=== PATIENT | female | born 1980 | race Two or more races ===

== ENCOUNTER 2020-10-19 13:30 | Emergency (ER) | payer OTHER ==
[~2020-10-19] VITALS: Ht 58.4 cm; Wt 83.0 kg
[~2020-10-19 13:30] MED LIST: TYLENOR
[2020-10-19] MEDS ORDERED: BACTRIM DS TAB1 EACH (13:46)
[2020-10-19] MEDS ORDERED: PROTONIX40 M1 (13:46)
[2020-10-19] MEDS ORDERED: BENTYL10 MG/1 ML (13:46)
[2020-10-19] MEDS ORDERED: NAPROXEN375 MG PO (23:44)
[2020-10-19] MEDS ORDERED: PEPCID AC20 MG PO (23:44)
== END 2020-10-20 00:04 | disposition home or self-care (01) ==
LOC: ER 13:30
DX: D25.9 Leiomyoma of uterus, unspecified (principal); R10.32 Left lower quadrant pain

== ENCOUNTER 2020-12-22 08:27 | Outpatient (CLI) | payer OTHER ==
[~2020-12-22 08:27] MED LIST changes: +BACTRIM DS TAB1 EACH; +BENTYL10 MG/1 ML; +NAPROXEN375 MG PO; +PEPCID AC20 MG PO; +PROTONIX40 M1
== END 2020-12-22 08:38 | disposition home or self-care (01) ==
LOC: MAMO-SONO 08:27
DX: D24.1 Benign neoplasm of right breast (principal); D24.2 Benign neoplasm of left breast; Z12.31 Encounter for screening mammogram for malignant neoplasm of breast; D25.0 Submucous leiomyoma of uterus; N64.4 Mastodynia; N94.89 Other specified conditions associated with female genital organs and menstrual cycle; N64.59 Other signs and symptoms in breast

== ENCOUNTER 2022-09-24 07:00 | Inpatient (IN) | payer OTHER ==
[~2022-09-24] VITALS: Ht 180.3 cm; Wt 91.6 kg
[2022-09-29] MEDS ORDERED: IBUPROFEN800 MG PO (10:39)
== END 2022-09-29 11:19 | disposition home or self-care (01) | DRG 741 ==
LOC: O/R 09-26 06:35 → SURG 09-26 07:00 → OB/GYN 09-26 22:38
PROVIDERS: ADMIT Obstetrics & Gynecology; ATTEND Obstetrics & Gynecology
PROC: 0UT70ZZ Resection of Bilateral Fallopian Tubes, Open Approach (ICD-10-PCS; 2022-09-26)
PROC: 0UT90ZZ Resection of Uterus, Open Approach (ICD-10-PCS; principal; 2022-09-26 09:15)
DX: D06.7 Carcinoma in situ of other parts of cervix (principal); N72 Inflammatory disease of cervix uteri; D25.1 Intramural leiomyoma of uterus; D25.2 Subserosal leiomyoma of uterus; Z20.822 Contact with and (suspected) exposure to COVID-19

== ENCOUNTER 2024-06-16 11:39 | Outpatient (CLI) | payer OTHER ==
[~2024-06-16 11:39] MED LIST changes: +IBUPROFEN800 MG PO
== END 2024-06-16 13:18 | disposition home or self-care (01) ==
LOC: MAMO-SONO 11:39
PROVIDERS: ATTEND Obstetrics & Gynecology
DX: N64.4 Mastodynia (principal); Z12.31 Encounter for screening mammogram for malignant neoplasm of breast; R10.2 Pelvic and perineal pain; N94.89 Other specified conditions associated with female genital organs and menstrual cycle

== ENCOUNTER → 2025-01-19 | Emergency (ER) | payer OTHER ==
[~2025-01-19] VITALS: Ht 180.3 cm; Wt 99.3 kg
[2025-01-19 18:28] LABS: HEMATOCRIT 41.9 % (36.0-45.00); HEMOGLOBIN 14.3 g/dL (12.0-15.00); MEAN CELL VOLUME 87.7 fL (80.00-100.00); MEAN CORPUSCULAR HEMOGLOBIN 29.9 pg (27.00-32.0); MEAN CORPUSCULAR HGB CONC 34.1 g/dl (32.0-36.0); PLATELET COUNT 263 K/uL (150-450); RED BLOOD COUNT 4.78 M/uL (4.00-6.00); RED CELL DISTRIBUTION WIDTH 12.3 % (11.5-14.5)
[2025-01-19 18:52] LABS: BILIRUBIN TOTAL 0.53 mg/dL (0.3-1.2); CALCIUM 9.4 mg/dL (8.5-10.1); CREATININE SERUM 0.85 mg/dL (0.55-1.02); GFR 73.34; GLOBULINA 3.8 G/DL (2.4-3.5); POTASSIUM 4.07 mEq/L (3.5-5.1); TOTAL PROTEIN 7.8 gm/dL (6.4-8.2)
== END | disposition home or self-care (01) ==
LOC: ER 11:48
PROVIDERS: Preventive Medicine Public Health & General Preventive Medicine
DX: I10 Essential (primary) hypertension (principal); R07.89 Other chest pain